=== PATIENT | female | born 1980 | race Caucasian/White ===

== ENCOUNTER 2021-04-23 22:32 | Emergency (ER) | payer OTHER, SELFPAY ==
--- NOTE | 2021-04-23 22:55 | PC.NURSE ---
Pt refusing to change into green scrubs at this time. Pt uncooperative and appearing agitated at this time. Making aggressive verbal comments at staff.
[2021-04-23] MEDS: diphenhydrAMINE HCl INJ 50 MG/ML VIAL IM (23:08)
[2021-04-23] MEDS: HALOPERIDOL LACTATE 5 MG/ML VIAL IM (23:09)
[2021-04-23] MEDS: LORazepam INJ (*CRX) 2 MG/ML VIAL IM (23:09)
[2021-04-23 23:12] LABS: Add Urine Microscopic? NO; Appearance Urine Clear (Clear); Basophils Percent Auto 0.7 % (0.2-1.2); Bilirubin Urine Negative (Negative); Blood Urine Negative (Negative); Color Urine Yellow (Yellow); Eosinophils Absolute Auto 0.1 K/mm3 (0-0.3); Eosinophils Percent Auto 1.3 % (0-4.4); Glucose Urine UA Negative (Negative); Hematocrit 40.1 % (37.0-47.0); Hemoglobin 12.9 g/dL (12.0-15.0); Immature Granulocyte Absolute 0.07 K/mm3 (0.00-0.031); Immature Granulocyte Percent A 1.3 % (0-0.5); Ketones Urine Negative (Negative); Leukocyte Esterase Ur Negative LEU/UL (Negative); Lymphocytes Absolute Auto 2.04 K/mm3 (0.9-3.2); Lymphocytes Percent Auto 37.1 % (18.3-44.2); Mean Corpuscular HGB Conc 32.2 g/dl (32-36); Mean Corpuscular Hemoglobin 26.7 pg (26-34); Mean Corpuscular Volume 82.9 fl (80-100); Mean Platelet Volume 9.2 fl (7.4-10.4); Monocytes Absolute Auto 0.5 K/mm3 (0.1-0.6); Monocytes Percent Auto 8.7 % (2.6-8.5); Neutrophils Absolute Auto 2.8 K/mm3 (1.3-6.7); Neutrophils Percent Auto 50.9 % (45.5-73.1); Nitrate Urine Negative (Negative); Platelet Count Result 252 k/mm3 (150-375); Protein Urine Negative (Negative); Red Blood Count 4.84 M/mm3 (4.2-5.4); Red Cell Distribution Width 15.7 % (11.5-14.5); Urobilinogen Urine Negative mg/dL (<2.0); White Blood Count 5.5 K/mm3 (4.5-10.0)
[2021-04-23 23:31] LABS: Alanine Aminotransferase 10 U/L (4-35); Albumin Level 4.1 g/dL (3.5-5.1); Alkaline Phosphatase 87 U/L (38-126); Anion Gap 12 mmol/L (8-16); Aspartate Amino Transferase 33 U/L (14-36); Bilirubin,Total 0.2 mg/dL (0.2-1.3); Blood Urea Nitrogen 11 mg/dL (7-17); Calcium 8.7 mg/dL (8.4-10.2); Carbon Dioxide 24 mmol/L (22-30); Chloride 95 mmol/L (98-107); Estimated Glomerular Filt Rate > 60; Glucose 96 mg/dL (65-105); Sodium 131 mmol/L (137-145)
[2021-04-24] VITALS: BP 103/68; PULSE 55; RESP 18; O2SAT 100
--- NOTE | 2021-04-24 00:05 | ECG_ITS ---
Measurements Intervals [place] Rate: 90 P: 38 VT: 154 QRS: 75 QRSD: 97 T: 59 QT: 370 QTc: 455 Interpretive Statements SINUS RHYTHM NORMAL ECG Electronically Signed On 04-24-2021 8:22:16 CDT by Refugio Marquis D.O.
--- NOTE | 2021-04-24 00:25 | PC.NURSE ---
Pt continues to be noncompliant with staff.
[2021-04-24 00:30] LABS: Acetaminophen < 10 ug/mL (10-30); Ethanol 217 mg/dL (<10); Salicylate 25.5 mg/dL (2-20)
[2021-04-24 00:52] LABS: Benzodiazepines Screen Urine Negative (Negative)
[2021-04-24 00:57] LABS: Barbiturate Screen Urine Negative (Negative)
[2021-04-24 00:58] LABS: Amphetamine Screen Urine Negative (Negative); Cannabinoid Screen Urine Negative (Negative); Cocaine Screen Urine Negative (Negative); Methadone Screen Urine Negative (Negative)
--- NOTE | 2021-04-24 01:01 | ED.GENADULT ---
HPI - General Adult General Chief complaint: Psychiatric Symptoms <Vernon Tang MD - Last Filed: 04/24/21 07:23> Stated complaint: unknown <Vernon Tang MD - Last Filed: 04/24/21 07:23> Time Seen by Provider: 04/23/21 22:43 <Vernon Tang MD - Last Filed: 04/24/21 07:23> History of Present Illness HPI narrative: Patient 41-year-old female presents the emergency department with chief complaint of mental health evaluation. Per PD the patient called the police asking for help saying that she was going to harm herself by jumping off of a bridge the patient was found at one point at a local bar after she had ordered food and drinks but did not have money to pay for them. The patient initially was questioned and said that she did not want herself she is wanted a place to stay but then subsequently admitted to the Police Department that she wanted to harm herself the patient currently is not cooperative and is currently not saying that she wants to harm her self. <Vernon Tang MD - Last Filed: 04/24/21 07:23> Related Data Allergies/adverse reactions: Allergies Allergy/AdvReac Type Severity Reaction Status Date / Time No Known Allergies Allergy Verified 04/24/21 02:02 <Vernon Tang MD - Last Filed: 04/24/21 07:23> Review of Systems Review of Systems: Narrative: A 10 system review of systems was completed on the patient and is negative except for what is stated in the HPI. Nursing and ancillary documentation was reviewed. <Vernon Tang MD - Last Filed: 04/24/21 07:23> PMFSH Social History Social History: Social History Substance use type: does not use Gender identity (if verbalized by the patient): Female Sexual Orientation (if Verbalized by the Patient): Straight or Heterosexual <Vernon Tang MD - Last Filed: 04/24/21 07:23> Exam Narrative: Exam Narrative: GENERAL: Well-appearing, well-nourished, and in no acute distress. HEAD: Normocephalic, atraumatic. EYES: PERRLA and EOMI. ENT: Nares clear, no rhinorrhea or epistaxis. Mucous membranes moist. NECK: Supple. CHEST: Clear to auscultation. No respiratory distress. HEART: Regular rate and rhythm. No murmur heard. Normal peripheral pulses. ABDOMEN: Soft, nontender, nondistended, normal active bowel sounds. EXTREMITIES: Normal range of motion. No edema. SKIN: Warm, dry, no rash. NEURO: No focal deficits. Alert and oriented x3. PSYCH: Normal mood and affect. <Vernon Tang MD - Last Filed: 04/24/21 07:23> Course Course Emergency Course: Patient has been observed in the emergency department till her blood alcohol level is come down to a nonintoxicated level. The patient did have a mildly elevated salicylate level but this is below the toxic level this is been observed and trended and continues to decrease in the ER. Patient is currently medically cleared for psychiatric evaluation. <Vernon Tang MD - Last Filed: 04/24/21 07:23> Reevaluation(s) Reevaluation #2: Accepted to [facility] by Dr. Kern <iMke Harrison MD - Last Filed: 04/24/21 12:56> Date: 04/24/21 <Mike Harrison MD - Last Filed: 04/24/21 12:56> Time: 12:56 <Mike Harrison MD - Last Filed: 04/24/21 12:56> Vital Signs Vital signs: Vital Signs Pulse Rate 55 L 04/24/21 00:00 Respiratory Rate 18 04/24/21 00:00 Blood Pressure 103/68 04/24/21 00:00 Pulse Oximetry 100 04/24/21 00:00 Temperature 98.8 F 04/24/21 05:50 Pulse Rate 89 04/24/21 05:50 Respiratory Rate 16 04/24/21 05:50 Blood Pressure 96/59 L 04/24/21 05:50 Pulse Oximetry 98 04/24/21 05:50 <Vernon Tang MD - Last Filed: 04/24/21 07:23> Vital Signs Pulse Rate 55 L 04/24/21 00:00 Respiratory Rate 18 04/24/21 00:00 Blood Pressure 103/68 04/24/21 00:00 Pulse Oximetry 100 04/24/21 00:00 [place]
[2021-04-24 02:38] LABS: Opiate Screen Urine Negative (Negative); Phencyclidine Screen Urine Negative (Negative)
[2021-04-24 02:41] LABS: Salicylate 22.3 mg/dL (2-20)
[2021-04-24 05:50] VITALS: BP 96/59; PULSE 89; RESP 16; TEMP 37.1; O2SAT 98
[2021-04-24 06:13] LABS: Salicylate 19.7 mg/dL (2-20)
[2021-04-24 06:14] LABS: Ethanol 55 mg/dL (<10)
[2021-04-24 06:53] LABS: EDCOVIDSCREEN Negative (Negative)
--- NOTE | 2021-04-24 07:20 | PC.NURSE ---
Pt asleep easily arousable, non-labored respirations, 1:1 sitter monitoring ongoing. Per report plan for social work eval
--- NOTE | 2021-04-24 08:40 | PC.NURSE ---
Social work here for assessment, pt choosing voluntary psych admission. Pt calm and cooperative, intermittently sleeping, 1:1 sitter ongoing
--- NOTE | 2021-04-24 10:15 | PC.NURSE ---
Voluntary petition faxed to [facility] per social work request, states pt has been accepted under Dr. Kern
--- NOTE | 2021-04-24 12:20 | PC.NURSE ---
CALLED [facility] TO TRANSPORT TO [facility]...ETA APPROX 12:40
[2021-04-24 13:03] VITALS: BP 116/84; PULSE 102; RESP 14; O2SAT 100
[2021-04-24 13:41] VITALS: BP 116/84; PULSE 105; RESP 14; O2SAT 100
== END 2021-04-24 13:03 ==
PROVIDERS: Emergency Medicine; Emergency Provider Emergency Medicine
DX: R45.851 Suicidal ideations (principal); Z20.822 Contact with and (suspected) exposure to COVID-19
CPT/HCPCS: 36415; 80053; 80307; 81003; 84443; 85025; 87426; 87491; 87591; 93005; 96372; 99285; C9803; J1200; J1630; J2060